=== PATIENT | female | born 1970 | race Caucasian/White ===

== ENCOUNTER → 2019-02-28 09:11 | Outpatient (CLI) | payer BC, SELFPAY ==
--- NOTE | 2019-02-28 09:15 | CA_ITS ---
APPROVED REPORT EXAM: Comprehensive 2D, Doppler, and color-flow Echocardiogram Information Technology Director: Marlin Saldaña RVT Ht: 5 ft 3 in Wt: 235lbs BSA: 2.07 BP: 167/73 mmHg Indications: Edema, HLD 2D Dimensions LVOT 2.30 cm (M/F) 1.5-2.5 M-Mode Dimensions RVDd 2.60 cm (0.9-2.6) LA Diam 3.50 cm (1.9-4.0) LVDd 5.30 cm (3.5-5.7) Ao Diam 2.80 cm (2.0-3.7) LVDs 3.20 cm (3.5-5.7) AV Cusp 1.70 cm (1.5-2.6) IVSd 1.00 cm (0.6-1.1) PWd 0.70 cm (0.6-1.1) EF (Teich) 69.60% FS 39.60% EDV (Teich) 135.00 mL ESV (Teich) 41.00 mL LV Diastology E/A Ratio 0.9 MED E' 7.02 (< 7 cm/sec) E'/MED E' Ratio 10.70 (>14) LAT E' 9.65 (<10 cm/sec) E/LAT E' Ratio 7.80 (>14) Aortic Valve AoV Peak Max. 93.80 (50-130 cm/s) AO Peak GR. 4.00 mmHg Mitral Valve MV E Max Max. 75.00 (40-130 cm/s) MV A Velocity 80.50 (40-130 cm/s) E/A Ratio 0.90 Pulmonary Valve PA Accel Time 137.00 (>120 msec) Left Ventricle Left atrium is normal size, left ventricle is normal size, there is no concentric left ventricular hypertrophy, visually estimated ejection fraction 55% with no regional wall motion abnormality. Diastolic parameters are within normal range. Right Ventricle Right atrium and right ventricular normal size and contractility. Aortic Valve Aortic valve is thickened and calcified leaflet continue to display good mobility. There is no aortic stenosis aortic insufficiency. Mitral Valve Mitral valve is grossly normal, there is mild mitral regurgitation. Tricuspid Valve Tricuspid valve is grossly normal, there is mild tricuspid regurgitation. Pulmonic Valve Pulmonic valve is poorly visualized. Great Vessels Aortic root is normal size. Pericardium No significant pericardial effusion noted. Conclusion 1. Normal left ventricular size, preserved left ventricular systolic function, visually estimated ejection fraction of 55% with no regional wall motion abnormality, diastolic parameters are within normal range. 2. Thickened and calcified aortic valve consistent with aortic sclerosis, there is no aortic stenosis aortic insufficiency. 3. Mild mitral and tricuspid regurgitation 4. No significant pericardial effusion noted. Electronically signed by : Gene Blanca, 02/28/2019 21:19:03
--- NOTE | 2019-02-28 09:17 | US_ITS ---
APPROVED REPORT Exam Type: Lower Extremity Segmental Pressures Facilities Director: Marlin Saldaña RVT Indications Rest Pain: Right Edema Current Smoker Risk Factors Hyperlipidemia Obesity Current Smoker Pressures/Indices Right Indices Left Indices Brachial 143.00 mmHg Brachial 134.00 mmHg Low Thigh 144.00 mmHg 1.01 Low Thigh 145.00 mmHg 1.01 Calf 147.00 mmHg 1.03 Calf 151.00 mmHg 1.06 Ankle(PT) 152.00 mmHg 1.06 Ankle(PT) 153.00 mmHg 1.07 Ankle(DP) 116.00 mmHg 0.81 Ankle(DP) 150.00 mmHg 1.05 Digit 98.00 mmHg 0.69 Digit 104.00 mmHg 0.73 Findings RT [facility]:1.06 LT [facility];1.07 RT TBI:0.69 LT TBI:0.73 NORMAL PULSES BILATERAL NORMAL WAVEFORMS BILATERAL Conclusion No evidence significant arterial disease throughout the right and left lower extremities as evidenced by normal resting PVR waveforms and normal resting indices. Electronically signed by : Noé Zaidi MD 03/01/2019 11:21:42
== END ==
PROVIDERS: PCP Emergency Medicine; Visit Provider Emergency Medicine
DX: R60.9 Edema, unspecified (principal); I73.9 Peripheral vascular disease, unspecified
CPT/HCPCS: 93306; 93923

== ENCOUNTER 2019-03-18 08:00 | Outpatient (RCR) | payer BC, SELFPAY ==
--- NOTE | 2019-03-01 13:56 | HMH.PTOPEV ---
PT Outpatient Evaluation Rehab PT Outpatient Evaluation Start: 03/01/19 13:11 Freq: Status: Active Protocol: Document 03/01/19 13:11 KRISTIAN (Rec: 03/01/19 13:56 KRISTIAN [id number]) Electronically Signed By Mehul Batista, PT 03/01/19 13:11 Outpatient Therapy Subjective History Subjective History Pt reports injury to R heel on Jan 16 and , when she ' banged her heel into a bucket, and then slipped on a toy'. Pt reports constant R heel ( posterior/achilles insertion) since injury, 'feels like it's brusied'. Pt reports pain stays localized, and improves w/decreased activity, open back footwear, and ice. Chief Complaint Pain,Stiff Symptom Type Ache,Sharp,Dull Symptoms Relieved By Rest/Positioning,Ice Symptoms Aggravated By Standing,Walking Prior Functional Limitations Housework Current Functional Limitations Housework,Standing,Walking Symptom Description Constant but Variable Level of pain today (0-10) 4 Pain scale - at its best (0-10) 2 Pain scale - at its worst (0-10) 6 Ankle/Foot Eval Gait Observation General Gait Pattern Observation Antalgic Gait Assistive Device Ambulation Assistive Device None Palpation Tenderness right Ankle/Foot Palpation Findings Tenderness Ankle/Foot Palpation Overall Comment 3/4 ACHILLES INSERTION AND TENDON ROM Ankle/Foot Dorsiflexion w/Knee Extended 0 Active Range Motion (degrees) Ankle/Foot Plantar Flexion Active Range 0-50 of Motion (degrees) Ankle/Foot Eversion Active Range of 0-25 Motion (degrees) Ankle/Foot Inversion Active Range of 0-35 Motion (degrees) Ankle/Foot ROM Limitations Pain MMT Ankle Dorsiflexion Strength Grade 4 Good Ankle Plantarflexion Strength Grade 4- Good- Foot Eversion Strength Grade 4- Good- Foot Inversion Strength Grade 4 Good Outpatient Therapy Assessment Impairments Problems/Impairmments Palpation Tenderness,Impaired Range of Motion,Impaired Strength,Impaired Gait Pattern ,Impaired Walking,Impaired Standing,Impaired Household Care,Impaired Work Activities, Increased Edema,Subjective C/O Pain,Impaired Self Care/Self Management Prognosis Rehab Potential Good Clinical Impression Consistent w
== END 2019-03-18 08:05 | disposition home or self-care (01) ==
LOC: PT 08:00
PROVIDERS: Visit Provider Emergency Medicine
DX: M76.61 Achilles tendinitis, right leg (principal)
CPT/HCPCS: 97010; 97014; 97033; 97035; 97110; 97140; 97163; G0283

== ENCOUNTER → 2019-03-18 15:19 | Outpatient (CLI) | payer BC, SELFPAY ==
--- NOTE | 2019-03-18 15:25 | XR_ITS ---
PROCEDURE: XR ANKLE WT BEARING RT MIN 3V CLINICAL INDICATION: ankle pain Posterior ankle pain COMPARISON: No exams were available for comparison FINDINGS: There are mild hypertrophic changes of the tips of the medial and lateral malleolus. No obvious fracture or dislocation. Small calcaneal spurs present. There is some mild ossification at the Achilles insertion on the calcaneus. This could be posttraumatic or due to early enthesophyte formation. IMPRESSION: No acute finding. Minor degenerative changes with mild ossification at the Achilles insertion on the calcaneus Dictated by: Noé Zaidi MD 03/18/2019 16:15 Electronically signed by Noé Zaidi MD in [facility] 03/18/2019 16:15
== END ==
PROVIDERS: PCP Family Medicine; Visit Provider Podiatrist
DX: M25.571 Pain in right ankle and joints of right foot (principal)
CPT/HCPCS: 73610

== ENCOUNTER → 2019-04-20 09:00 | Outpatient (CLI) | payer BC, SELFPAY ==
--- NOTE | 2019-04-20 09:02 | MM_ITS ---
PROCEDURE: MM DIG SCREENING MAMM BI W/CAD CLINICAL INDICATION: SCREENING There is a history of breast cancer patient's maternal aunt. COMPARISON: DMSB DIG MAMM-SCREEN ALON from 02/05/2016 TECHNIQUE: Standard CC and MLO images were obtained. R2 CAD reviewed. FINDINGS: Scattered fibroglandular densities are seen both breast on a background of fatty breast parenchyma. The findings of bilateral and symmetrical. There are couple of benign-appearing microcalcifications in each breast. There is no suspicious lesion and no suspicious microcalcifications. IMPRESSION: Fibrofatty parenchyma with no suspicious lesions seen BI-RAD Category: 2 Benign Finding(s) FOLLOW-UP: 1YR 1 Year Follow-up (A letter has been sent to the patient regarding results of the study.) Dictated by: Dr. Sebastian Kirkpatrick MD 04/22/2019 10:[address] Sebastian Kirkpatrick MD in [facility] 04/22/2019 10:35
== END ==
PROVIDERS: PCP Family Medicine; Visit Provider Nurse Practitioner Family
DX: Z12.31 Encounter for screening mammogram for malignant neoplasm of breast (principal)
CPT/HCPCS: 77067

== ENCOUNTER 2020-09-24 15:09 | Emergency (ER) | payer BC, SELFPAY ==
[2020-09-24] VITALS (9 sets, daily range): BP systolic 122–181; BP diastolic 60–108; PULSE 65–89; RESP 14–16; TEMP 36.7–37; O2SAT 89–98; BMI 43.7
--- NOTE | 2020-09-24 15:26 | CT_ITS ---
PROCEDURE INFORMATION: Exam: CT Angiography Neck With Contrast Exam date and time: 09/24/2020 3:26 PM Age: 49 years old Clinical indication: Patient HX: Severe headache x 3 days TECHNIQUE: Imaging protocol: Computed tomography angiography of the neck with contrast. 3D rendering (Not supervised by radiologist): MIP and/or 3D reconstructed images were created by the technologist. Radiation optimization: All CT scans at this facility use at least one of these dose optimization techniques: automated exposure control; mA and/or kV adjustment per patient size (includes targeted exams where dose is matched to clinical indication); or iterative reconstruction. Contrast material: ISOVUE; Contrast volume: 100 ml; Contrast route: INTRAVENOUS (IV); COMPARISON: No relevant prior studies available. FINDINGS: Right common carotid artery: No stenosis. No dissection or occlusion. Right internal carotid artery: No stenosis of the extracranial segment. No dissection or occlusion. Right external carotid artery: No occlusion or stenosis of the origin. Right vertebral artery: No stenosis. No dissection or occlusion. Left common carotid artery: No stenosis. No dissection or occlusion. Left internal carotid artery: No stenosis of the extracranial segment. No dissection or occlusion. Left external carotid artery: No occlusion or stenosis of the origin. Left vertebral artery: No stenosis. No dissection or occlusion. Bones/joints: Moderate degenerative changes of the cervical spine are present. Soft tissues: Normal. No significant soft tissue swelling. IMPRESSION: No acute abnormality. REFERENCES: NASCET CRITERIA. The degree of internal carotid artery stenosis is based on NASCET criteria. Normal is no stenosis. Mild is less than 50% stenosis. Moderate is 50-69% stenosis. Severe is 70% to 99% stenosis. Total occlusion is no detectable patent lumen.
--- NOTE | 2020-09-24 15:26 | CT_ITS ---
PROCEDURE INFORMATION: Exam: CT Angiography Head With Contrast, Arteriography Exam date and time: 09/24/2020 3:26 PM Age: 49 years old Clinical indication: Patient HX: Severe headache x 3 days TECHNIQUE: Imaging protocol: Computed tomography angiography of the head with contrast. Exam focused on the arteries. 3D rendering (Not supervised by radiologist): MIP and/or 3D reconstructed images were created by the technologist. Radiation optimization: All CT scans at this facility use at least one of these dose optimization techniques: automated exposure control; mA and/or kV adjustment per patient size (includes targeted exams where dose is matched to clinical indication); or iterative reconstruction. Contrast material: ISOVUE; Contrast volume: 100 ml; Contrast route: INTRAVENOUS (IV); COMPARISON: CT HEAD/BRAIN WO CON 09/24/2020 4:42 PM FINDINGS: ANTERIOR CIRCULATION: Right internal carotid artery: Unremarkable. Intracranial segment is patent with no significant stenosis. No aneurysm. Right middle cerebral artery: Unremarkable. No occlusion or significant stenosis. No aneurysm. Right anterior cerebral artery: Unremarkable. No occlusion or significant stenosis. No aneurysm. Left internal carotid artery: Unremarkable. Intracranial segment is patent with no significant stenosis. No aneurysm. Left middle cerebral artery: Unremarkable. No occlusion or significant stenosis. No aneurysm. Left anterior cerebral artery: Unremarkable. No occlusion or significant stenosis. No aneurysm. POSTERIOR CIRCULATION: Right vertebral artery: Unremarkable. No occlusion or significant stenosis. No aneurysm. Left vertebral artery: Unremarkable. No occlusion or significant stenosis. No aneurysm. Basilar artery: Unremarkable. No occlusion or significant stenosis. No aneurysm. Right posterior cerebral artery: Unremarkable. No occlusion or significant stenosis. No aneurysm. Left posterior cerebral artery: Unremarkable. No occlusion or significant stenosis. No aneurysm. Veins: The venous sinuses are patent. Brain: No definite mass, mass effect, or midline shift. Cerebral ventricles: No ventriculomegaly. Bones/joints: Unremarkable. No acute fracture. Soft tissues: Unremarkable. IMPRESSION: No acute abnormality. No large vessel occlusion
--- NOTE | 2020-09-24 15:42 | HMH.EDHA ---
ED Disposition Clinical Impression: Migraine Qualifiers: Migraine type: without aura Status migrainosus presence: without status migrainosus Intractability: not intractable Qualified Code(s): G43.009 - Migraine without aura, not intractable, without status migrainosus Disposition: Home, Self-Care Condition on Discharge: Good Instructions: Migraine -- Adult Prescriptions: Ibuprofen [Ibuprofen 800mg Tablet] 800 mg PO TIDP PRN #20 tab PRN Reason: Moderate Pain Transmission Status: Pending to [facility] Ondansetron [Zofran 4mg ODT] 4 mg PO BIDP PRN #10 tab PRN Reason: Nausea Transmission Status: Pending to [facility] Referrals: Jenna Blackburn MD [Primary Care Provider] - - Critical Care Critical Care Time: No Attestation: On 09/24/20, the high probability of a clinically significant, sudden or life threatening deterioration of the following system(s) required my full and direct attention, intervention and personal management. The time I documented below is in addition to time spent performing reported procedures but includes the following listed in this critical care notation. Medical Decision Making - Medical Records Medical records reviewed: Yes: I reviewed the patient's medical records. - Hugh Inquiry Pt receiving controlled substance: Yes Hugh was queried for this patient: No Reason not queried -: Emergent pt cond-no time Risks and benefits of using a controlled substance: were discussed with pt by me Vital Signs: 09/24/20 15:21 09/24/20 15:24 09/24/20 15:32 Temperature 98.1 F Temperature Source Oral Pulse Rate 66 89 Pulse Rate [Right] 87 Respiratory Rate 14 Blood Pressure 181/108 H 147/71 H Blood Pressure [Right Arm] 154/97 H Blood Pressure Mean 121 124 Blood Pressure Mean [Right Arm] 116 Blood Pressure Source [Right Arm] Automatic Cuff Blood Pressure Position [Right Arm] Sitting 02 Sat by Pulse Oximetry 93 L 93 L 94 L Oxygen Delivery Method Room Air - Lab Data Lab Results 09/24/20 15:33: WBC 8.9, RBC 5.13, Hgb 16.5 H, Hct 49.6 H, MCV 96.6, MCH 32.1 H, MCHC 33.2, RDW 13.6, Plt Count 246, MPV 7.8, Neut % (Auto) 47.2, Lymph % (Auto) 44.1, [place] % (Auto) 6.3, Eos % (Auto) 1.2, Baso % (Auto) 1.3, Neut # (Auto) 4.2, Lymph # (Auto) 3.9, [place] # (Auto) 0.6, Eos # (Auto) 0.1, Baso # (Auto) 0.1 09/24/20 15:33: Sodium 139, Potassium 4.4, Chloride 106, Carbon Dioxide 29, Anion Gap 8.4, BUN 9, Creatinine 0.60, Estimated Creat Clear 93, Estimated GFR 106, Est GFR ( Amer) 128, Glucose 96, Calcium 9.4, Total Bilirubin 0.3, AST 25, ALT 17, Alkaline Phosphatase 50, Total Protein 7.6, Albumin 4.5, Globulin 3.1, Albumin/Globulin Ratio 1.5 Result diagrams: 09/24/20 15:33 09/24/20 15:33 Orders (Tests/Meds): ED MEDICATIONS Discontinued Medications Generic Name Dose Route Start Last Admin Trade Name Arvinq PRN Reason Stop Dose Admin Diphenhydramine HCl 25 mg 09/24/20 15:27 09/24/20 15:46 Diphenhydramine 50mg/Ml Vial IV 09/24/20 15:28 25 mg ONCE ONE Administration Sodium Chloride 1,000 mls @ 999 mls/hr 09/24/20 15:30 09/24/20 15:46 Sod Chlor 0.9% 1000ml Bag IV 09/24/20 16:30 999 mls/hr .Q1H1M ELPIDIO Administration Iopamidol 100 ml 09/24/20 16:57 09/24/20 16:58 Iopamidol-370 (76%);100ml Bottle IV 09/24/20 16:58 100 ml ONCE ONE Administration Ketorolac Tromethamine 30 mg 09/24/20 17:37 09/24/20 18:20 Ketorolac 30mg/Ml Vial IV 09/24/20 17:38 30 mg ONCE ONE Administration Morphine Sulfate 4 mg 09/24/20 15:27 09/24/20 15:46 Morphine 4mg/Ml Syringe IV 09/24/20 15:28 4 mg ONCE ONE Administration Ondansetron HCl 4 mg 09/24/20 15:27 09/24/20 15:46 Ondansetron 4mg/2ml Vial IV 09/24/20 15:28 4 mg ONCE ONE Administration Sodium Chloride 50 ml 09/24/20 16:57 09/24/20 16:58 0.9 % Sodium Chloride 50 Ml Vial IV 09/24/20 16:58 50 ml ONCE ONE Administration Sodium Chloride 10 ml
[2020-09-24 15:46] LABS: Basophils # 0.1 K/mm3 (0-0.2); Basophils % 1.3 % (0.1-2.0); Eosinophils # 0.1 K/mm3 (0.0-0.4); Eosinophils % 1.2 % (0.1-12.0); Hematocrit 49.6 % (37.0-47.0); Hemoglobin 16.5 g/dL (12.2-16.2); Lymphocytes # 3.9 K/mm3 (0.7-4.5); Lymphocytes % 44.1 % (10-50); Mean Corpuscular HGB Conc 33.2 g/dL (31.8-35.4); Mean Corpuscular Hemoglobin 32.1 pg (27.0-31.2); Mean Corpuscular Volume 96.6 fl (81-99); Mean Platelet Volume 7.8 fl (7.4-10.4); Monocytes # 0.6 K/mm3 (0.1-1.0); Monocytes % 6.3 % (1.7-9.3); Neutrophils # 4.2 K/mm3 (1.8-7.8); Neutrophils % 47.2 % (37.0-80.0); Platelet Count 246 K/mm3 (142-424); Red Blood Count 5.13 M/mm3 (4.20-5.40); Red Cell Distribution Width 13.6 % (11.5-17.5); White Blood Count 8.9 K/mm3 (4.8-10.8)
[2020-09-24 15:49] LABS: Chloride 106 mmol/L (98-107)
[2020-09-24 15:50] LABS: Potassium 4.4 mmoL/L (3.5-5.1); Sodium 139 mmol/L (136-145)
[2020-09-24 15:52] LABS: Alanine Aminotransferase 17 U/L (12-78); Aspartate Amino Transferase 25 U/L (14-36); Blood Urea Nitrogen 9 mg/dl (7-17); Creatinine Clearance Estimated 93 mL/min (50-200); Estimated Glomerular Filt Rate 106 ml/min (>60); GFR (African American) 128 ML/MIN (>60)
[2020-09-24 15:53] LABS: Albumin Level 4.5 g/dl (3.5-5.0); Albumin/Globulin Ratio 1.5 (1.1-1.8); Alkaline Phosphatase 50 U/L (38-126); Anion Gap 8.4 mEq/L (5-15); Bilirubin,Total 0.3 mg/dl (0.2-1.3); Calcium 9.4 mg/dl (8.4-10.2); Carbon Dioxide 29 mmol/L (22.0-30.0); Globulin 3.1 g/dL (1.3-3.2); Glucose 96 mg/dl (74-100); Total Protein,Serum 7.6 g/dl (6.3-8.2)
--- NOTE | 2020-09-24 16:15 | CT_ITS ---
PROCEDURE INFORMATION: Exam: CT Head Without Contrast Exam date and time: 09/24/2020 4:15 PM Age: 49 years old Clinical indication: Patient HX: Severe headache; Additional info: Migraine TECHNIQUE: Imaging protocol: Computed tomography of the head without contrast. Radiation optimization: All CT scans at this facility use at least one of these dose optimization techniques: automated exposure control; mA and/or kV adjustment per patient size (includes targeted exams where dose is matched to clinical indication); or iterative reconstruction. COMPARISON: No relevant prior studies available. FINDINGS: Brain: No acute intracranial hemorrhage, cerebral edema, or midline shift. Cerebral ventricles: No hydrocephalus. Bones/joints: No acute fracture. Paranasal sinuses: Mild left maxillary sinusitis is present. Mastoid air cells: Visualized mastoid air cells are well aerated. Orbital cavity: Unremarkable as visualized. Soft tissues: Unremarkable. IMPRESSION: 1. No acute intracranial abnormality. 2. Mild left maxillary sinusitis
--- NOTE | 2020-09-24 16:58 | PC.NURSE ---
Pt back from CT
== END 2020-09-24 19:12 | disposition home or self-care (01) ==
PROVIDERS: Emergency Provider Emergency Medicine; PCP Family Medicine
DX: G43.009 Migraine without aura, not intractable, without status migrainosus (principal); M54.2 Cervicalgia; F17.210 Nicotine dependence, cigarettes, uncomplicated
CPT/HCPCS: 70450; 70496; 70498; 80053; 85025; 96374; 96375; 99282; J2405; Q9967

== ENCOUNTER → 2020-11-15 10:44 | Outpatient (CLI) | payer BC, SELFPAY ==
--- NOTE | 2020-11-15 10:50 | XR_ITS ---
PROCEDURE: XR CHEST 2V CLINICAL HISTORY: COUGH COMPARISON: No exams were available for comparison FINDINGS: The cardiomediastinal silhouette and pulmonary vascularity are within normal limits. The lungs are clear without infiltrates, suspicious nodules, or pleural effusions. No acute bony abnormalities. IMPRESSION: No acute findings. Dictated by: Noé Zaidi MD 11/15/2020 11:47 Noé Zaidi MD in [facility] 11/15/2020 11:47
== END ==
PROVIDERS: PCP Family Medicine; Visit Provider Nurse Practitioner Family
DX: R05 Cough (principal)
CPT/HCPCS: 71046

== ENCOUNTER → 2020-11-22 15:16 | Outpatient (CLI) | payer BC, SELFPAY ==
--- NOTE | 2020-11-22 15:19 | MM_ITS ---
PROCEDURE INFORMATION: Exam: MG Screening 3D Mammography Exam date and time: 11/22/2020 3:19 PM Age: 50 years old Clinical indication: Encounter for screening mammogram for malignant neoplasm of breast TECHNIQUE: Imaging protocol: Screening tomosynthesis and 2D mammography including computer-aided detection (CAD) when performed. COMPARISON: 1. MG MM DIG SCREENING MAMM BI W/CAD 04/20/2019 9:27 AM 2. MG DMSB DIG MAMM-SCREEN ALON 02/05/2016 8:28 AM FINDINGS: MAMMOGRAPHY: Breast composition: The breast tissue is composed of scattered areas of fibroglandular density. Mass: None. Architectural distortion: None. Calcifications: No suspicious calcifications. Asymmetric density: None. Skin thickening: None. Axillary adenopathy: None. IMPRESSION: No mammographic evidence of malignancy. Annual screening is recommended unless otherwise clinically indicated. ASSESSMENT: BI-RADS Category 1: Negative
--- NOTE | 2020-11-22 15:19 | US_ITS ---
PROCEDURE: US TRANSVAGINAL CLINICAL INDICATION: MENORRHAGIA COMPARISON: No exams were available for comparison FINDINGS: UTERUS: 8cm x 5cmx 5cm with a combined endometrial thickness of 14 mm LEFT OVARY: [id number] with a volume of 14.2ml. RIGHT OVARY: [id number] with a volume of 8.4ml. Somewhat rounded area of slight increased echogenicity noted within the endometrium at the fundal area at 16 x 14 mm and may represent endometrial polyp. There 1.9 cm benign-appearing left ovarian cyst. The right ovary has an unremarkable appearance. No cul-de-sac fluid. IMPRESSION: Thickened endometrium with suspected endometrial polyp 1.9 cm simple appearing left ovarian cyst Dictated by: Noé Zaidi MD 11/23/2020 09:20 Noé Zaidi MD in [facility] 11/23/2020 09:20
== END ==
PROVIDERS: PCP Family Medicine; Visit Provider Nurse Practitioner Family
DX: N92.0 Excessive and frequent menstruation with regular cycle (principal); Z12.31 Encounter for screening mammogram for malignant neoplasm of breast
CPT/HCPCS: 76830; 77063; 77067

== ENCOUNTER 2021-05-26 13:44 | Emergency (ER) | payer BC, SELFPAY ==
[2021-05-26 15:30] VITALS: BP 155/90; PULSE 91; RESP 18; TEMP 36.8; O2SAT 94; BMI 42.9
--- NOTE | 2021-05-26 15:52 | HMH.EDUTC ---
[facility] [place] Disposition Clinical Impression: Migraine Qualifiers: Migraine type: without aura Status migrainosus presence: without status migrainosus Intractability: not intractable Qualified Code(s): G43.009 - Migraine without aura, not intractable, without status migrainosus Disposition: Home, Self-Care Condition on Discharge: Good Instructions: DI for Migraine Additional Instructions: follow up with pcp if symptoms worsen return or be seen in ed monitor for fever rest Referrals: Jenna Blackburn MD [Primary Care Provider] - Time of Disposition: 16: Medical Decision Making - Hugh Inquiry Pt receiving controlled substance: No Vital Signs: 05/26/21 15:30 05/26/21 16:02 Temperature 98.3 F 98.3 F Temperature Source Oral Pulse Rate 91 H Pulse Rate [Right Brachial] 91 H Respiratory Rate 18 18 Blood Pressure 155/90 H Blood Pressure [Right Arm] 155/90 H Blood Pressure Mean [Right Arm] 111 Blood Pressure Source [Right Arm] Automatic Cuff Blood Pressure Position [Right Arm] Sitting 02 Sat by Pulse Oximetry 94 L Oxygen Delivery Method Room Air Orders (Tests/Meds): ED MEDICATIONS Discontinued Medications Generic Name Dose Route Start Last Admin Trade Name Freq PRN Reason Stop Dose Admin Dexamethasone Sodium Phosphate 4 mg 05/26/21 15:55 05/26/21 16:00 Dexamethasone 4mg/Ml 1ml Vial IM 05/26/21 15:56 4 mg ONCE ONE Administration Diphenhydramine HCl 12.5 mg 05/26/21 15:55 05/26/21 16:00 Diphenhydramine 50mg/Ml Vial IM 05/26/21 15:56 12.5 mg ONCE ONE Administration [facility] [place] HPI - General Chief complaint: Urgent Treatment Center Stated complaint: h/a Time Seen by Provider: 05/26/21 15:52 Mode of Arrival: Ambulatory Source of Information: Patient Limitations: No Limitations Description of Symptoms (Recalled from Triage Doc. by RN): PATIENT C/O MIGRAINE. REPORTS SHE HAD ADVIL AT 1100 THIS MORNING WITHOUT RELIEF HEENT Symptoms (Recalled from RN notes): Yes Resp Symptoms (Recalled from RN notes): No Skin Symptoms (Recalled from RN notes): No MS Symptoms (Recalled from RN notes): No Functional Status (Recalled from RN notes): WNL - History of Present Illness Provider Complaint: 50 yr old female presents for migraine with pain in neck and shoulders. pt reports hx of migraines and like her normal gar. denies fever or any other symptoms - Related Data Previous Rx's Medication Instructions Recorded Ibuprofen [Ibuprofen 800mg 800 mg PO TIDP PRN #20 tab 09/24/20 Tablet] Ondansetron [Zofran 4mg ODT] 4 mg PO BIDP PRN #10 tab 09/24/20 Allergies Allergy/AdvReac Type Severity Reaction Status Date / Time No Known Allergies Allergy Verified 09/24/20 15:34 - Worker's Comp Is this a Worker's Comp case?: No [facility] History - Hepatitis A Screen Drug use history?: No High risk sexual behaviors?: No History of sexually transmitted infection?: No Currently employed?: No Childcare worker?: No Do you have indoor plumbing?: Yes Do you have electricity?: Yes Attestation statement:: This patient has been screened for Hepatitis A risk factors. I have reviewed the patient's past medical history: Yes Other Surgeries: Yes: No Previous Surgery, Tubal Ligation Amputation: No - Social History Smoking Status: Current every day smoker Alcohol Intake: never Substance Use Type: denies use Occupational Status: employed Housing: house Household Members: family Family Hx:: No significant family history ROS Obtained: Yes Systems reviewed as appropriate & no additional complaints - Constitutional Constitutional: Reports system reviewed and no additional complaints, except as docu, Denies body ache, Denies chills, Denies fatigue, Denies fever(s), Denies poor appetite, Denies lethargy, Denies malaise - Eyes Eyes: Reports system reviewed and no additional complaints, except as docu, Denies blurry vision - ENT Ears, Nose, Mouth, and Throat: Reports system reviewed and
[2021-05-26 16:02] VITALS: BP 155/90; PULSE 91; RESP 18; TEMP 36.8; O2SAT 94
== END 2021-05-26 16:32 | disposition home or self-care (01) ==
PROVIDERS: Emergency Provider Nurse Practitioner Family; PCP Family Medicine
DX: G43.009 Migraine without aura, not intractable, without status migrainosus (principal); F17.210 Nicotine dependence, cigarettes, uncomplicated
CPT/HCPCS: 96372; 99202; G0463

== ENCOUNTER → 2021-05-29 13:32 | Outpatient (CLI) | payer BC, SELFPAY ==
--- NOTE | 2021-05-29 13:34 | MR_ITS ---
FINAL REPORT CLINICAL HISTORY: NEW DAILY PERSISTENT HEADACHE FINDINGS: Multiplanar MR imaging of the brain was performed without and with contrast. There is no evidence of intracranial hemorrhage or mass. No abnormal extra-axial fluid collection is seen. The ventricular size is within normal limits. There is no evidence of shift of the midline structures. The posterior fossa and brainstem have an unremarkable appearance. No area of abnormal restricted diffusion is identified. No abnormal contrast enhancement is seen. Normal major vessel vascular flow voids are noted. There is moderate mucosal thickening in the left maxillary sinus. IMPRESSION: No acute intracranial abnormality identified. Reviewed, Interpreted and Dictated by Wilfredo Khan III, MD Transcribed by Getachew Cabello Authenticated by Wilfredo Khan III, MD on 05/29/2021 03:44:27 PM [facility]
== END ==
PROVIDERS: PCP Family Medicine; Visit Provider Family Medicine
DX: G44.52 New daily persistent headache (NDPH) (principal)
CPT/HCPCS: 70553; A9576

== ENCOUNTER → 2021-06-17 09:37 | Outpatient (CLI) | payer BC, SELFPAY ==
[2021-06-18 06:50] LABS: Covid-19 Nasal PCR Sendout Lex NOT DETECTED
== END ==
PROVIDERS: PCP Family Medicine; Visit Provider Nurse Practitioner
DX: Z20.822 Contact with and (suspected) exposure to COVID-19 (principal)
CPT/HCPCS: C9803; U0004; U0005

== ENCOUNTER → 2021-07-13 09:01 | Outpatient (CLI) | payer BC, SELFPAY ==
[2021-07-13 09:41] LABS: Basophils # 0.1 K/mm3 (0-0.2); Basophils % 1.1 % (0.1-2.0); Eosinophils # 0.1 K/mm3 (0.0-0.4); Eosinophils % 1.6 % (0.1-12.0); Hematocrit 49.2 % (37.0-47.0); Hemoglobin 16.5 g/dL (12.2-16.2); Lymphocytes # 3.7 K/mm3 (0.7-4.5); Mean Corpuscular HGB Conc 33.7 g/dL (31.8-35.4); Mean Corpuscular Hemoglobin 32.9 pg (27.0-31.2); Mean Corpuscular Volume 97.8 fl (81-99); Mean Platelet Volume 8.5 fl (7.4-10.4); Monocytes # 0.6 K/mm3 (0.1-1.0); Monocytes % 6.8 % (1.7-9.3); Neutrophils # 4.3 K/mm3 (1.8-7.8); Neutrophils % 48.4 % (37.0-80.0); Platelet Count 245 K/mm3 (142-424); Red Blood Count 5.03 M/mm3 (4.20-5.40); Red Cell Distribution Width 13.7 % (11.5-17.5); White Blood Count 8.9 K/mm3 (4.8-10.8)
[2021-07-13 10:46] LABS: Chloride 101 mmol/L (98-107); Sodium 136 mmol/L (136-145)
[2021-07-13 10:49] LABS: Blood Urea Nitrogen 12 mg/dl (7-17); Estimated Glomerular Filt Rate 105 ml/min (>60); GFR (African American) 128 ML/MIN (>60)
[2021-07-13 10:50] LABS: Calcium 8.6 mg/dl (8.4-10.2); Carbon Dioxide 31 mmol/L (22.0-30.0); Glucose 84 mg/dl (74-100)
[2021-07-13 11:46] LABS: HCG Qualitative, Serum Negative (Negative)
== END ==
PROVIDERS: PCP Family Medicine; Referring Provider Nurse Practitioner Obstetrics & Gynecology; Visit Provider Nurse Practitioner Obstetrics & Gynecology
DX: Z01.818 Encounter for other preprocedural examination (principal); Z11.52 Encounter for screening for COVID-19; N84.0 Polyp of corpus uteri; N95.0 Postmenopausal bleeding; R10.2 Pelvic and perineal pain
CPT/HCPCS: 36415; 80048; 84703; 85025; C9803; U0003; U0005

== ENCOUNTER 2021-07-15 05:55 | Day surgery (SDC) | payer BC, SELFPAY ==
[2021-07-11 12:21] VITALS: BMI 46.0
[2021-07-15] VITALS (11 sets, daily range): BP systolic 108–149; BP diastolic 49–89; PULSE 74–104; RESP 18; TEMP 36.2–36.6; O2SAT 92–97
--- NOTE | 2021-07-15 06:51 | HMH.ANESCL ---
[facility] Anesthesia Checklist - Structural Data Admitted From: Home Planned Operative Procedure/s: d/c hyst Consent for Planned Operative Procedure(s) Verified: Yes - Additional verifications Anesthesia Reactions: No Hx Blood Transfusions: No Blood Transfusion Reaction: No - Airway Assessment C-Spine Mobility Assessed: Yes TMJ Mobility Assessed: Yes Dentition: Dentures-good fit - Neurological Assessment Level of Consciousness: Awake, Alert, Appropriate - Anesthesia Plan Anesthesia Risk discussed: Yes Anesthesia Plan: Verified ASA Class: III Anesthesia Type: General [facility] History I have reviewed the patient's past medical history: Yes Medical History: Reports:: Hypertension, Migraine Denies:: Cancer, Diabetes Mellitus Type 1, Diabetes Mellitus Type 2, Internal Pacemaker, MRSA, Seizures *Have you ever received a pneumonia vaccine?: Yes *Have you received a flu vaccine this season?: Yes Other Medical History: Denies: Blood Transfusion Reaction Anesthesia experience/problems:: none Other Surgeries: Yes: No Previous Surgery, Tubal Ligation. 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
--- NOTE | 2021-07-15 08:02 | HMH.OPNOTE ---
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 She had an ultrasound that showed a possible endometrial polyp and some endometrial thickening. As result of that she was offered hysteroscopy, D&C and MyoSure removal of her polyp. Operative findings:: She had an anteverted bulky uterus. The endometrium appeared lush. There was a small polyp. Operative note:: She was take the operating room where conscious sedation was found to be adequate. She is prepped with normal sterile fashion lithotomy position. A weighted speculum placed in vagina and the anterior lip of the cervix was grasped with a tenaculum. Augilera dilators used to dilate the cervix up to approximately 7 mm. We then used a hysteroscope and entered the uterine cavity. Saline was used as a distending media. Using the MyoSure device I then resected the entire endometrial cavity. This was sent to pathology. At the end of the procedure I injected approximately 30 cc of 0.5% ropivacaine at the 3:00, 5:00, 7:00, and 9:00 positions. She tolerated procedure well and was taken to recovery next condition. All sponge and instrument counts were correct. The estimated blood loss was approximately 50 cc. We used 1800 cc of saline and recovered 1500 cc. The deficit was 300 cc. Condition: stable Disposition: PACU Complications:: None
--- NOTE | 2021-07-15 08:15 | HMH.ANESI ---
[facility] Anesthesia Record Part I Intake, IV Amount: 500 Estimated blood loss (mL): 50 Urine output (mL): 0 Blood Pressure: 130/86 SaO2: 95 Pulse Rate: 86 Respiratory Rate: 18 Temperature: 97.9 F Patient is:: Drowsy Stable to PACU at:: 08:08
--- NOTE | 2021-07-15 16:35 | P.PN_ITS ---
[facility] Anesthesia Record Part II Discharge Time: 08:38 Destination: Surgical Day Care (OP Surgery) PACU nurse assessment reviewed?: Yes Patient Condition:: Good Anesthesia Complications:: None Swallowing reflex intact?: Yes Cyanosis?: No Blood Pressure: 121/77 Pulse Rate: 81 Temperature: 97.3 F Mental Status: Alert & Oriented Pain level:: 4 Nausea and/or vomitting:: None Intake, IV Amount: 0
== END 2021-07-15 09:10 | disposition home or self-care (01) ==
LOC: OR 05:57
PROVIDERS: PCP Family Medicine; Visit Provider Nurse Practitioner Obstetrics & Gynecology
PROC: 0UB98ZZ Excision of Uterus, Via Natural or Artificial Opening Endoscopic (ICD-10-PCS; CPT 58558; principal; 2021-07-15 07:30)
DX: N95.0 Postmenopausal bleeding (principal); N84.0 Polyp of corpus uteri; I10 Essential (primary) hypertension; G43.909 Migraine, unspecified, not intractable, without status migrainosus; Z80.9 Family history of malignant neoplasm, unspecified; Z83.3 Family history of diabetes mellitus; Z82.3 Family history of stroke
CPT/HCPCS: 58563; 58558; 96374; J2405

== ENCOUNTER → 2021-08-21 10:05 | Outpatient (CLI) | payer BC, SELFPAY | PROVIDERS: Visit Provider Surgery | DX: Z11.52 Encounter for screening for COVID-19 (principal) | CPT/HCPCS: C9803; U0003; U0005 ==

== ENCOUNTER 2021-08-23 07:29 | Day surgery (SDC) | payer BC, SELFPAY ==
[2021-08-21 13:06] VITALS: BMI 45.1
[2021-08-23 07:38] VITALS: BP 164/100; PULSE 96; RESP 18; TEMP 36.5; O2SAT 95
--- NOTE | 2021-08-23 08:10 | P.PN_ITS ---
[facility] Anesthesia Checklist - Patient Identification Patient Identification: Arm Band - Structural Data Admitted From: Home Planned Operative Procedure/s: colonoscopy Consent for Planned Operative Procedure(s) Verified: Yes Verified Documents: Surgical Consent, History and Physical - NPO Status Verified Time NPO: 00:00 - Additional verifications Anesthesia Reactions: No Hx Blood Transfusions: No Blood Transfusion Reaction: No - Airway Assessment C-Spine Mobility Assessed: Yes (mp2) TMJ Mobility Assessed: Yes Dentition: Good Dentition - Neurological Assessment Level of Consciousness: Awake, Alert - Anesthesia Plan Anesthesia Risk discussed: Yes Anesthesia Plan: Verified ASA Class: III Anesthesia Type: MAC [facility] History I have reviewed the patient's past medical history: Yes Medical History: Reports:: Hyperlipidemia, Hypertension, Migraine Denies:: Cancer, Diabetes Mellitus Type 1, Diabetes Mellitus Type 2, Internal Pacemaker, MRSA, Seizures *Have you ever received a pneumonia vaccine?: Yes *Have you received a flu vaccine this season?: Yes Other Medical History: Denies: Blood Transfusion Reaction Anesthesia experience/problems:: nac Other Surgeries: Yes: Tubal Ligation. 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
[2021-08-23 08:15] VITALS: O2SAT 97
--- NOTE | 2021-08-23 09:17 | HMH.SCOPE ---
- Procedure: Date: 08/23/21 Patient Date of :: 1970 Procedure Performed:: Total colonoscopy with numerous polypectomy using biopsy and snare Indications:: 50-year-old female, smoker with hypertension referred by Dr. Blackburn for initial screening colonoscopy. Performing Provider:: Wilfredo Miner MD Referring Provider:: Isidro Blackburn MD Sedation:: MAC sedation Procedure:: Patient was taken to endoscopy procedure room. She was positioned in lateral decubitus position. Adequate intravenous sedation was achieved with anesthesia titration propofol. Variable stiffness Olympus colonoscope was inserted via the anus. Is advanced to the cecum. Colonic preparation was good. Ileocecal valve and appendiceal orifice were clearly identified. Colonoscope was slowly withdrawn through the colon with careful surveillance. Multiple small polyps were encountered and removed by a variety of technique. Please see findings below. Post polypectomy in the sigmoid colon did reveal evidence of vessel and Hemoclip was deployed. Within the rectum retroflexion was performed. There was a small polyp in the distal rectum removed with cold snare. She had some prolapsing internal hemorrhoids. Patient also had some moderate external hemorrhoids. Colonoscope was withdrawn. Findings:: Descending colon polyp x2 removed with biopsy forceps Distal descending colon polyp x3 removed with snare Proximal sigmoid polyp x4 removed with cold snare Mid sigmoid polyp x5 removed with cold snare Distal sigmoid polyp x5 removed with combination of cold snare and biopsy forceps Rectosigmoid polyp x5 removed with biopsy forceps Distal rectal polyp removed with cold snare She had a total of 26 small mostly hyperplastic appearing polyps. Internal and external hemorrhoids. Recommendations:: Follow-up colonoscopy based on pathology Complications:: None immediately apparent Estimated blood obtained (mL): 4 Comment:: Small hyperplastic appearing polyps x26 Internal and external hemorrhoids
[2021-08-23 09:20] VITALS: BP 106/55; PULSE 87; RESP 18; TEMP 36.4; O2SAT 95
[2021-08-23 09:30] VITALS: BP 118/80; PULSE 91; RESP 18; O2SAT 97
[2021-08-23 09:53] VITALS: BP 158/87; PULSE 84; RESP 18; TEMP 36.4; O2SAT 98
== END 2021-08-23 09:53 | disposition home or self-care (01) ==
LOC: OUTP 07:30
PROVIDERS: PCP Family Medicine; Visit Provider Surgery
PROC: 0DJD8ZZ Inspection of Lower Intestinal Tract, Via Natural or Artificial Opening Endoscopic (ICD-10-PCS; CPT 45385; principal; 2021-08-23 08:30)
DX: Z12.11 Encounter for screening for malignant neoplasm of colon (principal); K63.5 Polyp of colon; K64.9 Unspecified hemorrhoids; E78.5 Hyperlipidemia, unspecified; I10 Essential (primary) hypertension; G43.909 Migraine, unspecified, not intractable, without status migrainosus; Z72.0 Tobacco use; Z83.3 Family history of diabetes mellitus
CPT/HCPCS: 45385; 45380; J2704

== ENCOUNTER 2022-07-03 15:23 | Outpatient (CLI) | payer BC, SELFPAY ==
[2022-07-03 15:59] VITALS: BMI 44.2
== END 2022-07-03 19:43 | disposition home or self-care (01) ==
LOC: UTC.OUT 11-11 14:49
PROVIDERS: Visit Provider Nurse Practitioner Family
DX: Z11.1 Encounter for screening for respiratory tuberculosis (principal)
CPT/HCPCS: 86580

== ENCOUNTER → 2022-09-15 10:15 | Outpatient (CLI) | payer BC, SELFPAY ==
--- NOTE | 2022-09-15 10:20 | XR_ITS ---
FINAL REPORT CLINICAL HISTORY: PAIN NO INJURY FINDINGS: LEFT SHOULDER 3 views of the left shoulder were obtained. There is no acute fracture or dislocation. Visualized joint spaces are normally aligned. Soft tissues are unremarkable. IMPRESSION: No acute bony abnormality. Reviewed, Interpreted and Dictated by Patrick Thompson MD Transcribed by Rena Chase Authenticated and [facility]
== END ==
PROVIDERS: PCP Family Medicine; Visit Provider Family Medicine
DX: M25.512 Pain in left shoulder (principal)
CPT/HCPCS: 73030

== ENCOUNTER → 2022-09-26 13:22 | Outpatient (CLI) | payer BC, SELFPAY ==
--- NOTE | 2022-09-26 13:25 | MM_ITS ---
PROCEDURE INFORMATION: Exam: MG Bilateral Screening 3D Mammography Exam date and time: 09/26/2022 1:28 PM Age: 51 years old Clinical indication: Screening mammogram TECHNIQUE: Imaging protocol: Bilateral Screening tomosynthesis and 2D mammography including computer-aided detection (CAD) when performed. COMPARISON: 1. MG MM DIG SCREENING MAMM BI W/CAD 11/22/2020 3:52 PM 2. MG MM DIG SCREENING MAMM BI W/CAD 04/20/2019 9:27 AM 3. MG DMSB DIG MAMM-SCREEN ALON 02/05/2016 8:28 AM FINDINGS: MAMMOGRAPHY: Breast composition: There are scattered areas of fibroglandular density. Mass: None. Architectural distortion: No new or suspicious architectural distortion. Calcifications: No new or suspicious calcifications are present Asymmetric density: No new or suspicious asymmetric density is present Skin thickening: None. Axillary adenopathy: None. IMPRESSION: No mammographic evidence of malignancy. Recommend annual screening mammography unless otherwise clinically indicated. ASSESSMENT: BI-RADS category 1: Negative
== END ==
PROVIDERS: PCP Family Medicine; Visit Provider Family Medicine
DX: Z12.31 Encounter for screening mammogram for malignant neoplasm of breast (principal)
CPT/HCPCS: 77063; 77067

== ENCOUNTER → 2022-10-06 15:42 | Outpatient (CLI) | payer BC, SELFPAY ==
--- NOTE | 2022-10-06 15:45 | MR_ITS ---
FINAL REPORT CLINICAL HISTORY: DEGENERATION OF INV. DISC OF C-SPINE. left sided neck pain. bilateral arm pain, numbness and tingling FINDINGS: Multiplanar MR imaging of the cervical spine was performed without contrast. On the sagittal T2-weighted images, disc degeneration is seen at multiple levels. There is no evidence of fracture. The vertebral alignment is normal. The cervical spinal cord has an unremarkable appearance without evidence of mass, edema or syrinx. The cervicomedullary junction is normal. C2-3: A small central disc protrusion is present which mildly indents the thecal sac. No significant canal stenosis or neural foraminal narrowing is identified. C3-4: A small central disc protrusion indents the thecal sac. There is mild central canal stenosis with an AP diameter of the thecal sac of 8 mm. C4-5: A disc bulge is present with small uncovertebral osteophytes. There is a small central disc protrusion which mildly indents the thecal sac. There is mild left neural foraminal narrowing. C5-6: A disc osteophyte complex is present. There is a left paracentral disc protrusion which indents the thecal sac and causes cord contouring. There is mild central canal stenosis with an AP diameter of the thecal sac of 7 mm. There is moderate bilateral neural foraminal narrowing. C6-7: A disc osteophyte complex is present. There is a broad-based left paracentral disc protrusion which indents the thecal sac. There is mild left neural foraminal narrowing. C7-T1: A small left paracentral disc protrusion mildly indents the thecal sac. There is mild left neural foraminal narrowing. T1-2: Unremarkable. IMPRESSION: Left paracentral C5-6 disc protrusion with mild central canal stenosis and probable left C6 nerve root impingement. Multiple other disc protrusions as described. Authenticated and [facility]
== END ==
PROVIDERS: PCP Family Medicine; Visit Provider Family Medicine
DX: M50.30 Other cervical disc degeneration, unspecified cervical region (principal)
CPT/HCPCS: 72141; 76376

== ENCOUNTER 2022-10-14 15:00 | Outpatient (RCR) | payer BC, SELFPAY | END 2022-10-14 15:05 | disposition home or self-care (01) | LOC: OT 15:00 | PROVIDERS: PCP Family Medicine; Visit Provider Family Medicine | DX: M25.512 Pain in left shoulder (principal) | CPT/HCPCS: 97165 ==

== ENCOUNTER 2023-09-03 16:48 | Outpatient (CLI) | payer BC, SELFPAY ==
--- NOTE | 2023-09-03 | XR_ITS ---
PROCEDURE INFORMATION: Exam: XR Lumbosacral Spine Exam date and time: 09/03/2023 4:57 PM Age: 52 years old Clinical indication: Low back pain; Additional info: Lower back pain x 3 days TECHNIQUE: Imaging protocol: Radiologic exam of the lumbosacral spine. Views: 4 or 5 views. COMPARISON: No relevant prior studies available. FINDINGS: Bones/joints: No loss of vertebral body height. Mild multilevel degenerative disc disease is greatest at L4-L5. No scoliosis or spondylolisthesis. Soft tissues: Unremarkable. Organs: 2.3 cm calcification in the right abdomen could be a gallstone. IUD in the pelvis. IMPRESSION: Mild multilevel degenerative disc disease in the lumbar spine.
== END 2023-09-03 23:59 | disposition home or self-care (01) ==
LOC: RAD 16:50
PROVIDERS: PCP Family Medicine; Visit Provider Physician Assistant
DX: M54.16 Radiculopathy, lumbar region (principal)
CPT/HCPCS: 72110

== ENCOUNTER 2023-09-17 08:13 | Outpatient (CLI) | payer BC, SELFPAY ==
--- NOTE | 2023-09-17 08:22 | US_ITS ---
FINAL REPORT TECHNIQUE: Multiple transverse and longitudinal images CLINICAL HISTORY: ABN XRAY COMPARISON: None FINDINGS: There is a dominant gallstone measuring up to 23 mm in size. There is a adjacent nonshadowing 6 mm focus, that likely represents a small polyp. No biliary ductal dilatation is appreciated. No fluid collections are seen. Limited portions of the right liver are unremarkable. Limited portions of the right kidney are unremarkable. IMPRESSION: Dominant gallstone measuring up to 23 mm. Adjacent nonshadowing echogenic focus measuring 6 mm, that may represent a small polyp. Reviewed, Interpreted and Dictated by Jenna Hernandez MD Transcribed by Tracy Macias Authenticated and [facility]
== END 2023-09-17 23:59 | disposition home or self-care (01) ==
LOC: RAD 08:15
PROVIDERS: PCP Family Medicine; Visit Provider Physician Assistant
DX: R93.89 Abnormal findings on diagnostic imaging of other specified body structures (principal)
CPT/HCPCS: 76705

== ENCOUNTER 2023-09-22 13:45 | Outpatient (RCR) | payer BC, SELFPAY ==
--- NOTE | 2023-09-22 15:22 | HMH.PTOPEV ---
PT Outpatient Evaluation Rehab PT Outpatient Evaluation Start: 09/22/23 13:53 Freq: Status: Active Protocol: Document 09/22/23 13:53 JAY (Rec: 09/22/23 15:17 JAY [email or web address]) E-signed By Nara Cruz, PT Outpatient Therapy Subjective History Subjective History This is an initial evaluation for Gypsy Martin who presents with acute LBP with R-sided radiculopathy. Pt reports these symptoms began 3-4 weeks ago but have improved since. Pt reports history of LBP but this is a new acute pain that begins centrally and goes down to R thigh (not past knee). Pt denying prior injury, numbness, tingling, or worsening weakness. 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 PMH: Hyperlipidemia, Hypertension, and Migraines Meds: Prednisone, meloxicam. Lumbar Xray 09/02: No loss of vertebral body height. Mild multilevel degenerative disc disease is greatest at L4-L5. No scoliosis or spondylolisthesis. New diagnosis of cancer in past 12 No months? Chief Complaint Pain,Stiff Symptom Type Ache,Sharp Symptoms Relieved By Heat,OTC Meds,Prescription Meds Symptoms Aggravated By Standing,Bending/Stooping, Physical Activity,Twisting, Walking,Lifting Prior Functional Limitations None Current Functional Limitations Reaching,Lifting,Dressing, Sleeping,Standing,Squatting, Recreation Activity,Walking Symptom Description Constant but Variable Level of pain today (0-10) 3 Pain scale - at its best (0-10) 1 Pain scale - at its worst (0-10) 6 Lumbopelvic Eval Posture Lumbar Spine Posture Standing Position Increased Lordosis Gait Observation General Gait Pattern Observation Antalgic Gait Palapation tenderness right thoracic spinal tenderness No lumbar spinal tenderness Yes: 3/4 TTP paraspinal tenderness Yes: 2/4 TTP buttock tenderness Yes: 1/4 TTP Lumbar/Sacral Palpation Findings Tenderness,Muscle Guarding Accessory Movement T-spine Vertebrae Accessory Movements Central [place] that Elicit Symptoms L3 right L4 right L5 right Range of Motion Lumbar Spine Active Flexion Range of limited, 50, painful Motion (degrees) Lumbar Spine Active Extension Range of limited, 15, painful Motion (degrees) Left Lumbar Spine Lateral Flexion Active 25 Range of Motion (degrees) Right Lumbar Spine Lateral Flexion 25, painful Active Range of Motion (degrees) Lumbar Spine ROM Limitations Pain Manual Muscle Test Left Knee Extension Strength Grade 5 Normal Knee Flexion Strength Grade 4 Good Hip Flexion Strength Grade 4 Good Hip Abduction Strength Grade 4 Good Hip Adduction Strength Grade 4 Good Right Knee Extension Strength Grade 4 Good Knee Flexion Strength Grade 4- Good- Hip Flexion Strength Grade 3+ Fair+ Hip Abduction Strength Grade 4- Good- Hip Adduction Strength Grade 4- Good- Hip Extension Strength Grade 4 Good Special Tests Hip Saurabh (MARIA ISABEL) Test Negative Right Hip Nicolas Test Positive Right Hip Piriformis Test Positive Right Sciatic Nerve Tension Test Negative Right Hip 90-90 Straight Leg Raise Test Negative Left,Negative Right Crossed Straight Leg Raise Test Negative Left,Negative Right Sacroiliac Joint Compression Test Negative Left,Negative Right Lumbar [place] Distraction Test/Manual Negative Traction Oswestry Index Section 1 Pain Intensity The pain comes and goes and is moderate Section 2 Personal Care (Washing,Dresing) increase the pain and I find it necessary to change my way of doing it Section 3 Lifting Pain prevents me from lifting weights off the floor Section 4 Walking I have some pain when walking but it does not increase with distance Section 5 Sitting Pain prevents me from sitting for more than 1/2 hour Section 6 Standing I cannot stand more than 1 hour without increasing pain Section 7 Sleeping Because of my pain, my normal night's sleep is less than 6 hours sleep Section 8 Social Life Pain has no significant effect on my social life apart from limiting Section 9 Traveling I get extra pain while traveling, but it does not compel me to seek al Section 10 Changing Degreee of Pain My pain fluctuates, but overall is definitely getting better Score and Risk Level Oswestry Sc 20 Oswestry Risk Level Moderate Disability Miscellaneous Dx PT Eval Miscellaneous Goals Short Term Goals In 3 weeks pt will: 1) Be IND with HEP to address strength and ROM deficits 2) Verbalize at worst pain to be 4/10 to decrease pain severity 3) Decrease lumbar paraspinal TTP to 1/4 to decrease symptom irritability. Skilled Nursing Goals In 6 weeks pt will: 1) Be IND with advanced HEP to address strength and ROM deficits 2) Verbalize at worst pain LBP to be 2/10 to decrease pain severity and improve QOL 3) Improve RLE hip strength to 5/5 with all tested MMTs 4) Decrease MARGARITA by 5 points to decrease disability and improve QOL 5) Improve lumbar AROM to WNL in all planes. Outpatient Therapy Assessment Impairments Problems/Impairmments Palpation Tenderness,Impaired Range of Motion,Impaired Strength,Impaired Endurance, Impaired Walking,Impaired Standing,Impaired Lifting, Impaired Shower/Bathing, Impaired Household Care, Impaired Squatting,Impaired Bending,Impaired Recreational Activities,Impaired Work Activities,Subjective C/O Pain Prognosis Rehab Potential Good Clinical Impression Consistent with Diagnosis Yes Outpatient Therapy Plan of Care Treatment Plan May Include Therapeutic Exercise Including Home Yes Exercise Program Manual Therapy Techniques Yes Neuromuscular Re-education Yes Therapeutic Activities to Return to Yes Previous Functional/Work Level Gait Training Yes ADL/Self Care Education Yes Mechanical Traction Yes Dry Needling Yes Thermal Modalities Yes Electrical Stimulation Yes Ultrasound/Phonophoresis Yes Iontophoresis Yes Orthotics/Bracing/Splinting Yes Massage Yes Eval/Re-Eval Yes Aquatic Therapy Yes Frequency Times per week 2x Duration Number of Weeks 5-6 Addendums This patient is a candidate for social No or vocational rehab? Patient/Guardian verbally acknowledges Yes understanding of treatment program and consents to further treatment? Patient/Guardian verbally acknowledges Yes understanding of diagnosis, prognosis and goals for treatment? Eval Complexity PT Charges 83086 - Moderate Complexity Shoulder/Elbow Eval Shoulder Objective Measurements Elbow Objective Measurements PHYSICIAN CERTIFICATION: I certify the specified therapy services for Gypsy Martin are required, authorized, and reviewed every 30 days.
== END 2023-09-22 15:00 | disposition home or self-care (01) ==
LOC: PT 13:45
PROVIDERS: Visit Provider Physician Assistant
DX: M54.16 Radiculopathy, lumbar region (principal)
CPT/HCPCS: 97163

== ENCOUNTER 2024-06-03 10:45 | Outpatient (CLI) | payer BC, SELFPAY ==
--- NOTE | 2024-06-03 10:49 | XR_ITS ---
FINAL REPORT CLINICAL HISTORY: BRONCHITIS..cough COMPARISON: 11/15/2020 FINDINGS: No acute pulmonary density is evident. There is no evidence of effusion or other pleural disease. The mediastinum has a normal appearance. The cardiac silhouette is unremarkable. IMPRESSION: No acute disease. No change from previous. Reviewed, Interpreted and Dictated by Jenna Hernandez MD Transcribed by Amber Dumont Authenticated and [facility]
== END 2024-06-03 23:59 | disposition home or self-care (01) ==
LOC: RAD 10:46
PROVIDERS: PCP Family Medicine; Visit Provider Physician Assistant
DX: J40 Bronchitis, not specified as acute or chronic (principal)
CPT/HCPCS: 71046

== ENCOUNTER 2024-06-09 15:14 | Outpatient (CLI) | payer BC, SELFPAY ==
--- NOTE | 2024-06-09 15:16 | MM_ITS ---
PROCEDURE INFORMATION: Exam: MG Bilateral Screening 3D Mammography Exam date and time: 06/09/2024 3:02 PM Age: 53 years old Clinical indication: Screening examination TECHNIQUE: Imaging protocol: Bilateral Screening tomosynthesis and 2D mammography including computer-aided detection (CAD) when performed. COMPARISON: 1. MG MM DIG SCREENING MAMM BI W/CAD 09/26/2022 1:28 PM 2. MG MM DIG SCREENING MAMM BI W/CAD 11/22/2020 3:52 PM FINDINGS: MAMMOGRAPHY: Breast composition: There are scattered areas of fibroglandular density. Mass: None. Architectural distortion: None. Calcifications: No suspicious calcifications. Asymmetric density: None. Skin thickening: None. Axillary adenopathy: None. IMPRESSION: No mammographic evidence of malignancy. Annual screening is recommended unless otherwise clinically indicated. ASSESSMENT: BI-RADS Category 1: Negative.
== END 2024-06-09 23:59 | disposition home or self-care (01) ==
LOC: RAD 15:14
PROVIDERS: PCP Family Medicine; Visit Provider Physician Assistant
DX: Z12.31 Encounter for screening mammogram for malignant neoplasm of breast (principal)
CPT/HCPCS: 77063; 77067

== ENCOUNTER 2024-12-14 08:38 | Emergency (ER) | payer BC, SELFPAY ==
--- OUTSIDE RECORDS SUMMARY | 2024-03-23 11:30 | XMS_ITS ---
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 Role Phone Julio C Blackburn Primary Care Provider Dorene Alexanderian Unavailable [phone] REASON FOR VISIT flu shot Medications Medication SIG (Take, Route, Frequency, Duration) Notes Start Date End Date Status Albuterol Sulfate HFA 108 (90 Base) MCG/ACT 1-2 puff(s) inhaled every 6 hours, prn 09/05/2022 Not-Taking Medrol 4 MG as directed orally 09/05/2022 Not-Taking Kxxoglqie-Mvejxzmx-U M 30-2-10 MG/5ML 5-10 ml orally 4 times per day, prn 09/05/2022 Not-Taking Amoxicillin 500 MG 1 cap(s) orally 3 times a day; Duration: 10 day(s) 05/31/2021 Not-Taking Amoxicillin-Pot Clavulanate 875 MG 1 P.O. BID *Please review and pick correct strength-formula tion from [employer] options. If intended option is not shown, discontinue and re-order from Quick Search* 09/26/2020 Not-Taking Ozempic (0.25 or 0.5 MG/DOSE) 2 MG/1.5 ML (1 MG DOSE) 0.25MG SUBCUTANEOUSLY ONCE A WEEK *Please review and pick correct strength-formula tion from [employer] options. If intended option is not shown, discontinue and re-order from Quick Search* 11/11/2021 Not-Taking Medrol 4 MG as directed orally daily; Duration: 6 days 10/20/2022 Not-Taking Metoprolol Succinate ER 25 MG TAKE ONE TABLET BY MOUTH EVERY DAY; Duration: 30 Not-Taking Fluticasone Propionate 50 MCG/ACT 1 spray(s) in each nostril once a day; Duration: 30 day(s) 08/20/2020 Not-Taking Meloxicam 15 MG 1 tab(s) orally once a day; Duration: 30 day(s) 09/15/2022 Active Medrol 4 MG as directed orally daily; Duration: 6 days 09/03/2023 Not-Taking Medrol 4 MG as directed orally daily; Duration: 6 days 09/15/2022 Not-Taking Flonase Allergy Relief 50 MCG/ACT 1 spray(s) in each nostril once a day; Duration: 30 day(s) 05/31/2021 Active Nurtec 75 MG 1 tab(s) orally once 05/28/2021 Active Cyclobenzaprine HCl 5 MG 1 tablet Orally three times a day as needed Active Immunizations Vaccine Route Administration Date Status Comme nts Fluzone Quad (6months&older) IM Intramuscular 03/23/2024 Administered Encounters Encounter Location Date Provider Diagnosis [facility] [address] [facility] [address] [place], [place] [id number] 03/23/2024 Alessandro Alexander Encounter for immunization Z23 Assessments Encounter Date Diagnosis (ICD Code) Assessment Notes Treatment Notes Treatment Clinical Notes Section Notes 03/23/2024 Encounter for immunization (ICD-10 - Z23) Plan Of Treatment No Information Progress Notes * Gypsy ORDONEZDOB:1970 (54 yo F)Acc No.[id number]:03/23/2024 Patient: Gypsy GÓMEZ Provider: Edie Alexander M.D. :1970 A ge:53 Y S ex:Female Date:03/23/2024 [address] [id number] Pcp:Julio C Blackburn Subjective: * Chief Complaints: * 1 . Flu shot. * Medical History: * Medications: T aking Nurtec 75 MG Tablet Disintegrating 1 tab(s) orally once , Taking Flonase Allergy Relief 50 MCG/ACT Suspension 1 spray(s) in each nostril once a day , Taking Cyclobenzaprine HCl 5 MG Tablet 1 tablet Orally three times a day as needed , Taking Meloxicam 15 MG Tablet 1 tab(s) orally once a day , Not-Taking Metoprolol Succinate ER 25 MG Tablet Extended Release 24 Hour TAKE ONE TABLET BY MOUTH EVERY DAY , Not-Taking Medrol 4 MG Tablet Therapy Pack as directed orally daily , Not-Taking Ozempic (0.25 or 0.5 MG/DOSE) 2 MG/1.5 ML (1 MG DOSE) SOLUTION 0.25MG SUBCUTANEOUSLY ONCE A WEEK , Notes to Pharmacist: *Please review and pick correct strength-formulation from [employer] options. If intended option is not shown, discontinue and re-order from Quick Search*, Not-Taking Fluticasone Propionate 50 MCG/ACT Suspension 1 spray(s) in each nostril once a day , Not-Taking Amoxicillin-Pot Clavulanate 875 MG 1 P.O. BID , Notes to Pharmacist: *Please review and pick correct strength-formulation from [employer] options. If intended option is not shown, discontinue and re-order from Quick Search*, Not-Taking Amoxicillin 500 MG Capsule 1 cap(s) orally 3 times a day , Not-Taking Ntakrinmy-Bmygqlky-JT 30-2-10 MG/5ML Syrup 5-10 ml orally 4 times per day, prn , Not-Taking Medrol 4 MG Tablet Therapy Pack as directed orally , Not-Taking Albuterol Sulfate HFA 108 (90 Base) MCG/ACT Aerosol Solution 1-2 puff(s) inhaled every 6 hours, prn , Not-Taking Medrol 4 MG Tablet Therapy Pack as directed orally daily , Not-Taking Medrol 4 MG Tablet Therapy Pack as directed orally daily , Medication List reviewed and reconciled with the patient Objective: * Vitals: Assessment: * Assessment: 1. E ncounter for immunization - Z23 (Primary) Plan: * Treatment: * Immunizations: Fluzone Quad (6months&older) : 0.5 mL (Route: Intramuscular) given by Mona Lugo on Right Deltoid (Encounter for immunization) * Images: Billing Information: * Visit Code: * Procedure Codes: * Electronic signature of Vania Alexander MD on 12/14/2024 at 08:45 AM EDT Sign off status: Pending * Provider: Edie Alexander M.D. Date: 1 05/23/2023 Generated for Isaiah hook/Du/Gilmar on: 0 12/14/2024 08:45 AM EDT
--- OUTSIDE RECORDS SUMMARY | 2024-06-03 05:45 | XMS_ITS ---
Author Organization [facility] Address [address] [place] [id number] Care Team Providers Care Rn Licensed Practical Name Role Phone Julio C Blackburn Primary Care Provider SantoshFern inman Unavailable [phone] Allergies No Known Allergies Results Component Value Reference Range Notes CBC Venipuncture (in house) Reviewed date:06/03/2024 12:28:30 PM Interpretation: Performing Lab: Notes/Report: wbc 9.5 3.5 - 10 lymph 36.8 15 - 50 mid 6.8 2 - 15 gran 56.4 35 - 80 rbc 5.19 3.5 - 5.5 hgb 16.8 11.5 - 16.5 hct 50.1 35 - 55 mcv 96.5 75 - 100 mch 32.3 25 - 35 mchc 33.5 31 - 38 platlet 205 100 - 400 Glycohemoglobin A1c (in hous e) Reviewed date:06/08/2024 11:31:21 AM Interpretation:6.4% Performing Lab: Notes/Report: 6.4% glycohemoglobin 6.4% 5 - 6.5 % P-Comprehensive Metabolic Pa eugenia (CMP) Reviewed date:06/08/2024 11:31:21 AM Interpretation:Normal Performing Lab: Notes/Report: Test performed by [facility] [address] [place] [address] , [address], [place] [address] Hamlet Louis MD, Developmental Therapist CLIA: [id number] Sodium 141 135-145 mmol/L Potassium 4.6 3.5-5.3 mmol/L Chloride 102 97-108 mmol/L CO2 28 22-32 mmol/L Glucose 95 65-99 mg/dL BUN 8 6-20 mg/dL Creatinine 0.60 0.50-1.00 mg/dL Calcium 9.5 8.6-10.4 mg/dL eGFR by Creatinine 106 >59 mL/min/1.73m2 Protein 7.2 6.0-8.3 g/dL Albumin 4.5 3.5-5.3 g/dL Alkaline Phosphatase 56 35-121 IU/L ALT (SGPT) 22 <5-47 IU/L AST (SGOT) 17 <5-40 IU/L Bilirubin, Total 0.5 <0.2-1.2 mg/dL A/G Ratio 1.7 1.1-2.5 P-Lipid Panel Reviewed date:06/08/2024 11:31:21 AM Interpretation:chol 236, trigs 182, hdl 37, chol/hdl 6.38, non-hdl 199, ldl 163, ldl/hdl 4.4 Performing Lab: Notes/Report: Test performed by [facility], [address] , [address], [place] [address] Hamlet Louis MD, Developmental Therapist CLIA: [id number] Cholesterol 236 <200 mg/dL Triglycerides 182 <150 mg/dL HDL Cholesterol 37 >39 mg/dL Cholesterol / HDL Ratio 6.38 0.00-4.44 Ratio Non-HDL Cholesterol 199 <130 mg/dL LDL Cholesterol (Calculation) 163 <130 mg/dL LDL Cholesterol Levels* Less than 100 mg/dL Optimal 100 to 129 mg/dL Near Optimal/ Above Optimal 130 to 159 mg/dL Borderline High 160 to 189 mg/dL High 190 mg/dL and above Very High * Categories as recommended by the 2004 ATPIII guidelines LDL/HDL Ratio 4.4 <3.3 Ratio LDL Cholesterol Patient History Test Date: 06/03/2024 LDL Results: 163 Units: mg/dL % Change: - P-Microalbumin/Creatinine, R andom Urine Sample Reviewed date:06/08/2024 11:31:21 AM Interpretation:Normal Performing Lab: Notes/Report: Test performed by [facility] [address] , [address], [place] [address] Hamlet Louis MD, Developmental Therapist CLIA: [id number] Albumin/Creatinine Ratio, Urine 19 0-30 ug/m g Microalbumin, Urine, Random 2.2 Creatinine, Urine 113.1 CXR Reviewed date:06/08/2024 11:31:21 AM Interpretation:nothing acute, no change Performing Lab: Notes/Report: nothing acute, no change Mammogram Reviewed date:06/15/2024 03:37:14 PM Interpretation:negative Performing Lab: Notes/Report: negative REASON FOR VISIT check up and blood work Medications Medication SIG (Take, Route, Frequency, Duration) Notes Start Date End Date Status Meloxicam 15 MG 1 tab(s) orally once a day; Duration: 30 day(s) 09/15/2022 Active Albuterol Sulfate HFA 108 (90 Base) MCG/ACT 1-2 puffs as needed Inhalation every 4 hrs, prn 06/03/2024 Active Uqzcrywig-Jvktfnbt-NB 30-2-10 MG/5ML 5-10 ml Orally 4 times a day, prn 06/03/2024 Active Vital Signs Blood pressure systolic 124 mm Hg 06/03/19 25 Blood pressure diastolic 86 mm Hg 025 Heart Rate 93 /min 06/03/2024 Height 63.50 in 06/03/2024 Weight 266.2 lbs 06/03/2024 BMI 46.41 kg/m2 06/03/2024 Encounters Encounter Location Date Provider Diagnosis [facility] [address] [place] [id number] 06/03/2024 Fern Yates Type 2 diabetes henry itus without complication, without long-term current use of insulin E11.9 ; Hyperlipidemia E78.5 ; Osteoarthritis of spine with radiculopathy, cervical region M47.22 ; Tobacco use Z72.0 ; Bronchitis J40 and Screening mammogram, encounter for Z12.31 Assessments Encounter Date Diagnosis (ICD Code) Assessment Notes Treatment Notes Treatment Clinical Notes Section Notes 06/03/2024 Type 2 diabetes mellitus without complication, without long-term current use of insulin (ICD-10 - E11.9) 06/03/2024 Hyperlipidemia (ICD-10 - E78.5) 06/03/2024 Osteoarthritis of spine with radiculopathy, cervical region (ICD-10 - M47.22) 06/03/2024 Tobacco use (ICD-10 - Z72.0) 06/03/2024 Bronchitis (ICD-10 - J40) 06/03/2024 Screening mammogram, encounter for (ICD-10 - Z12.31) Plan Of Treatment Medication Medication Name Sig Start Date Stop Date Notes Albuterol Sulfate HFA 108 (9 0 Base) MCG/ACT 1-2 puffs as needed Inhalation every 4 hrs, prn 06/03/2024 Zbavfwcir-Lxydrdou-BI 30-2-1 0 MG/5ML 5-10 ml Orally 4 times a day, prn 06/03/2024 Next Appt Details Follow Up: via phone to repo rt test results, Reason: Progress Notes * Gypsy ORDONEZDOB:1970 (54 yo F)Acc No.[id number]:06/03/2024 Progress Notes Patient: Gypsy GÓMEZ Provider: NATALY Caro :1970 A ge:53 Y S ex:Female Date:06/03/2024 Address:[facility] [id number] Pcp:Julio C Blackburn Subjective: * Chief Complaints: * 1 . Check up and blood work. * HPI: H PI: 53 year old female presents with c/o Patient is here today for?Pt is here today for a check up and blood work. Pt sts she has been sick since [place] and has been wheezing.. * ROS: D ERMATOLOGY: no R rick. n o H quang. G ASTROENTEROLOGY: no N ausea. n o V omiting. n o D iarrhea.? U ROLOGY: no D ifficulty urinating. n o B lood in urine. * Medical History: P fismooth Covid vaccine, Jul 20August 17, 2020, 08/2022 x-ray left shoulder negative. * Family History: F ather: 68 yrs. M other: 64 yrs. 2 sister(s) . 2 son(s) , 1 daughter(s) - healthy. . Father of heart attack, mother of COPD. * Social History: C URRENT TOBACCO USE S moking Status: Patient does smoke, packs per day: 0.5, Smoking preference: cigarettes. C affeine: frequency:. Marital Status: . Past smoking status: yes, Smoking status: Patient does smoke, Packs per day: 1, Smoking preference: cigarettes. * Medications: T aking Meloxicam 15 MG Tablet 1 tab(s) orally once a day , Medication List reviewed and reconciled with the patient * Allergies: N .K.D.A. Objective: * Vitals: W t:266.2, Temp:98.4, BP:124/86, HR:93, O2 Sat:95%, Nurse:[facility], Ht: 63.50, BMI:46.41. * Examination: G eneral Examination: General Appearance: N AD. H EENT: u nremarkable.?Oral cavity: n o lesions, mucosa moist and WNL, no erythema. N linnea: s upple, no lymphadenopathy. C hest: n ormal shape and expansion. H eart: R SR. L ungs: c lear to auscultation. A bdomen: bowel sounds present, soft and nontender, no organomegaly or masses, no guarding or rigidity. N eurologic Exam: I ntact, gait normal. S kin: n ormal, no rash. P eripheral pulses: n ormal (2+) bilaterally. E xtremities: n o leg edema. Assessment: * Assessment: 1. T ype 2 diabetes mellitus without complication, without long-term current use of insulin - E11.9 (Primary) 2 . H yperlipidemia - E78.5 3 . O steoarthritis of spine with radiculopathy, cervical region - M47.22 4 . T obacco use - Z72.0 5 . B ronchitis - J40 6 . S creening mammogram, encounter for - Z12.31 Plan: * Treatment: Value Reference Range A /G Ratio 1.7 1.1-2.5 - * A lbumin 4.5 3.5-5.3 - g/dL * A lkaline Phosphatase 56 35-121 - IU/L * A LT (SGPT) 22 <5-47 - IU/L * A ST (SGOT) 17 <5-40 - IU/L * B ilirubin, Total 0.5 <0.2-1.2 - mg/dL * B UN 8 6-20 - mg/dL * C alcium 9.5 8.6-10.4 - mg/dL * C hloride 102 97-108 - mmol/L * C O2 28 22-32 - mmol/L * C reatinine 0.60 0.50-1.00 - mg/dL * G lucose 95 65-99 - mg/dL * P otassium 4.6 3.5-5.3 - mmol/L * S odium 141 135-145 - mmol/L * P rotein 7.2 6.0-8.3 - g/dL * e GFR by Creatinine 106 >59 - mL/min/1.73m2 * Fern Yates 06/08/2024 11 :31:12 AM > see TE ?LAB: P-Microalbumin/Creatinine, Random Urine Sample (Collection Date & Time - 06/03/2024 09:13 AM)?Normal* Value Reference Range A lbumin/Creatinine Ratio, Urine 19 0-30 - ug /mg * C reatinine, Urine 113.1 - mg/dL * M icroalbumin, Urine, Random 2.2 - mg/dL * Fern Yates 06/08/2024 11 :31:12 AM > see TE ?LAB: Glycohemoglobin A1c (in house) (Collection Date & Time - 06/03/2024)? 6.4%* Value Reference Range g lycohemoglobin 6.4% 5 - 6.5 % * Brittnee Mata 06/03/2024 10:34 :08 AM > Fern Yates 06/08/2024 11:31:12 AM > see TE 2.?Hyperlipidemia?LAB: P-Lipid Panel (Collection Date & Time - 06/03/2024 09:13 AM)?chol 236, trigs 182, hdl 37, chol/hdl 6.38, non-hdl 199, ldl 163, ldl/hdl 4.4* Value Reference Range C holesterol / HDL Ratio 6.38 H 0.00-4.44 - Ratio * C holesterol 236 H <200 - mg/dL * H DL Cholesterol 37 L >39 - mg/dL * L DL Cholesterol (Calculation) 163 H <130 - mg/d L * L DL/HDL Ratio 4.4 H <3.3 - Ratio * N on-HDL Cholesterol 199 H <130 - mg/dL * T riglycerides 182 H <150 - mg/dL * Fern Yates 06/08/2024 11 :31:12 AM > see TE 3.?Bronchitis? Start Cxorvwhar-Ejyqzudo-NI Syrup, 30-2-10 MG/5ML, 5-10 ml, Orally, 4 times a day, prn, 240 mL, Refills 1;?Start Albuterol Sulfate HFA Aerosol Solution, 108 (90 Base) MCG/ACT, 1-2 puffs as needed, Inhalation, every 4 hrs, prn, 1, Refills 1.?LAB: CBC Venipuncture (in house) (Collection Date & Time - 06/03/2024)* Value Reference Range w bc 9.5 3.5 - 10 * l ymph 36.8 15 - 50 * m id 6.8 2 - 15 * g ran 56.4 35 - 80 * r bc 5.19 3.5 - 5.5 * h gb 16.8 11.5 - 16.5 * h ct 50.1 35 - 55 * m cv 96.5 75 - 100 * m ch 32.3 25 - 35 * m chc 33.5 31 - 38 * p latlet 205 100 - 400 * Brittnee Mata 06/03/2024 10:29 :20 AM > , Provider reviewed results while patient in office.TrudyFern Bustillo 06/03/2024 12:28:24 PM > ?Imaging: CXR (Performed Date - 06/03/2024)?nothing acute, no change* TrudyFern Bustillo 06/08/2024 11 :31:12 AM > see TE 4.?Screening mammogram, encounter for?Imaging: Mammogram (Performed Date - 06/09/2024)?negative* TrudyFern Bustillo 06/03/2024 11 :18:36 AM >Berenice Velarde 06/03/2024 11:34:58 AM > faxed to [facility] SchedulingCrFern marcum Keny 06/15/2024 9:16:05 AM > Please let patient know this was normalSelene Mcelroy 06/15/2024 3:37:05 PM > Pt informed * Procedure Codes: 9 47[address] [place], [address] CBC WITH AUTO DIFF, 75011 GLYCATED HEMOGLOBIN TEST, Modifiers: QW * Follow Up: v ia phone to report test results * Images: Billing Information: * Visit Code: 23317 Office Visit, Est Pt., Level 4. * Procedure Codes: [address] [place]. [address] CBC WITH AUTO DIFF. 47111 GLYCATED HEMOGLOBIN TEST. Modifiers: QW * Electronic signature of NATALY Bolanos on 12/14/2024 at 08:45 AM EDT Sign off status: Pending * Provider: NATALY Caro Date: 0 06/03/2024 Generated for Teresoi ng/Faadriag/eTransmitting on: 0 12/14/2024 08:45 AM EDT History and Physical Notes * HPI (History of Present Illness) Category Sub-Category Detail Notes Category Not es HPI Patient is here today for Pt is here today for a check up and blood work. Pt sts she has been sick since [place] and has been wheezing. Examination Category Sub-Category Detail Notes Category Not es General Examination HEENT: unremarkable Heart: RSR Lungs: clear to auscultatio n Abdomen: bowel sounds present , soft and nontender, no organomegaly or masses, no guarding or rigidity Extremities: no leg edema General Appearance: NAD Skin: normal, no rash Neurologic Exam: Intact, gait normal Neck: supple, no lymphaden opathy Oral cavity: no lesions, mucosa m oist and WNL, no erythema Peripheral pulses: normal (2+) bilatera lly Chest: normal shape and exp ansion
--- OUTSIDE RECORDS SUMMARY | 2024-12-14 08:45 | XMS_ITS | Patient Health Record ---
Author Organization [facility] Address [address] [place] [id number] Care Team Providers Care Pipe Stem Repairer Name Role Phone Julio C Blackburn Primary Care Provider Catherine Alessandro Unavailable [phone] Fern Yates Unavailable [phone] Allergies No Known Allergies Results Component Value [...] Interpretation:Normal Performing Lab: Notes/Report: Test performed by [facility] [address] [place] [address] , [address], [place] [address] Hamlet Louis MD, Charge Lpn CLIA: [id number] Sodium 141 135-145 mmol/L Potassium 4.6 3.5-5.3 [...] 4.4 Performing Lab: Notes/Report: Test performed by [facility], [address] , [address] , [place] [address] Hamlet Louis MD, Charge Lpn CLIA: [id number] Cholesterol 236 <200 mg/dL Triglycerides 182 <150 [...] Interpretation:Normal Performing Lab: Notes/Report: Test performed by [facility], [address] , [place] [address] Hamlet Louis MD, Charge Lpn CLIA: [id number] Albumin/Creatinine Ratio, Urine 19 0-30 ug/m g Microalbumin, Urine, Random 2.2 Creatinine, Urine 113.1 CXR Reviewed date:06/08/2024 11:31:21 AM Interpretation:nothing acute, no change Performing Lab: Notes/Report: nothing acute, no change Mammogram Reviewed date:06/15/2024 03:37:14 PM Interpretation:negative Performing Lab: Notes/Report: negative Reason For Referral No Information Medications Medication SIG (Take, Route, Frequency, Duration) Notes Start Date End Date Status Meloxicam 15 MG 1 tab(s) orally once a day; Duration: 30 days Active Albuterol Sulfate HFA 108 (90 Base) MCG/ACT 1-2 puffs as needed Inhalation every 4 hrs, prn 06/03/2024 Active Ohnymvocx-Ibksmubw-YI 30-2-10 MG/5ML 5-10 ml Orally 4 times a day, prn 06/03/2024 Active Rosuvastatin Calcium 5 mg TAKE ONE TABLE T BY MOUTH EVERY DAY; Duration: 30 Active Immunizations Vaccine Route Administration Date Status Comme nts xFluzone Intradermal (18-64yrs)-trivalent ID Intradermal 02/13/2012 Administered xFluzone Intradermal (18-64yrs)-trivalent ID Intradermal 02/11/2013 Administered xFluzone (6mos and older)-trivalent IM 04/02/2010 Administered Tetanus Tdap-Adacel (over 7yrs) IM Intramuscular 01/28/2016 Administered Shingrix Unknown 06/04/2020 Administered Shingrix Unknown 06/04/2020 Administered Fluzone Quad (6months&older) IM Intramuscular 03/26/2017 Administered Fluzone Quad (6months&older) IM Intramuscular 02/20/2018 Administered Fluzone Quad (6months&older) IM Intramuscular 02/19/2019 Administered Fluzone Quad (6months&older) IM Intramuscular 03/15/2022 Administered Fluzone Quad (6months&older) IM Intramuscular 03/19/2023 Administered Fluzone Quad (6months&older) IM Intramuscular 03/23/2024 Administered Fluzone Intradermal Quad private(18-64yrs) ID Intradermal 03/22/2015 Administered Fluzone Intradermal Quad private(18-64yrs) IM Intramuscular 01/28/2016 Administered Flublok IM Intramuscular 03/07/2021 Administered xFlu shot-36 months and older IM Intramuscular 04/06/2008 Administered xFlu shot-36 months and older IM Intramuscular 01/25/2009 Administered PNEUMOVAX 23 VACCINE Unknown 06/04/2020 Administered Hepatitis A (adult) IM Intramuscular 05/21/2018 Administer ed Hepatitis A (adult) IM Intramuscular 11/24/2018 Administer ed COVID 19 Pfizer Unknown 07/20/2020 Administered COVID 19 Pfizer Unknown 08/17/2020 Administered COVID 19 Pfizer Unknown 04/05/2021 Administered Problems Problem Type SNOMED Code ICD Code Onset Dates Problem Status W/U Status Risk Notes Problem Hyperlipidemia (81448392) Hyperlipidemia (E78.5) Active confirmed Problem Menorrhagia (767506268) Menorrhagia (N92.0) Active confirmed Problem Body mass index 40+ - severely obese (273274188) BMI 45.0-49.9, adult (Z68.42) Active confirmed Problem Bursitis of shoulder (429240967) Bursitis of unspecified shoulder (M75.50) Active confirmed Problem Shoulder lesion, unspecified, unspecified shoulder (M75.90) Active confirmed Problem New daily persistent headache (296233645759710) New daily persistent headache (G44.52) Active confirmed Problem Cervical disc disorder (346535822) DDD (degenerative disc disease), cervical (M50.30) Active confirmed Problem Shoulder joint pain (242626374) Acute pain of left shoulder (M25.512) Active confirmed Problem Cervical spondylosis without myelopathy (612815819) Osteoarthritis of spine with radiculopathy, cervical region (M47.22) Active confirmed Problem Allergic rhinitis caused by pollen (78433104) Seasonal allergic rhinitis due to pollen (J30.1) Active confirmed Problem Type II diabetes mellitus without complication (427208168) Type 2 diabetes mellitus without complication, without long-term current use of insulin (E11.9) Active confirmed Problem Sciatic nerve lesion (716295249) Piriformis syndrome, right (G57.01) Active confirmed Problem Fibrocystic breast changes (15631621) Fibrocystic breast disease (FCBD), unspecified laterality (N60.19) Active confirmed Problem Acquired deformity of neck (38205270) Neural foraminal stenosis of cervical spine (M99.81) Active confirmed Problem Plain X-ray result abnormal (682230346) Abnormal x-ray (R93.89) Active confirmed Problem Primary hypertension (56241655) Primary hypertension (I10) Active confirmed Problem History of headache (094981031) History of headache (Z87.898) Active confirmed Problem Degeneration of cervical intervertebral disc (88352302) Degeneration of intervertebral disc of cervical spine without disc herniation (M50.30) Active confirmed Vital Signs Heart Rate 93 /min 06/03/2024 Blood pressure diastolic 86 mm Hg 06/03/2024 Height 63.50 in 06/03/2024 Blood pressure systolic 124 mm Hg 06/03/2024 Weight 266.2 lbs 06/03/2024 BMI 46.41 kg/m2 06/03/2024 Encounters Encounter Location Date Provider Diagnosis [facility] [address] [place], [place] [id number] 03/23/2024 Alessandro Alexander Encounter for immunization Z23 [facility] [address] [place], [place] [id number] 06/03/2024 Fern Yates Type 2 diabetes henry itus without complication, without long-term current use of insulin E11.9 ; Hyperlipidemia E78.5 ; Osteoarthritis of spine with radiculopathy, cervical region M47.22 ; Tobacco use Z72.0 ; Bronchitis J40 and Screening mammogram, encounter for Z12.31 [facility] [address] [place] [id number] 04/18/2024 Julio C Blackburn [facility] [address] [place] [id number] 06/08/2024 Fern Yates Assessments Encounter Date Diagnosis (ICD Code) Assessment Notes Treatment Notes Treatment Clinical Notes Section Notes 06/03/2024 Type 2 diabetes mellitus without complication, without long-term current use of insulin (ICD-10 - E11.9) 03/23/2024 Encounter for immunization (ICD-10 - Z23) 06/03/2024 Hyperlipidemia (ICD-10 - E78.5) 06/03/2024 Osteoarthritis of spine with radiculopathy, cervical region (ICD-10 - M47.22) 06/03/2024 Tobacco use (ICD-10 - Z72.0) 06/03/2024 Bronchitis (ICD-10 - J40) 06/03/2024 Screening mammogram, encounter for (ICD-10 - Z12.31) Plan Of Treatment No Information Insurance Providers Payer Name Payer Address Payer Phone Subscriber Number Group Number Insured Name Patient Relationship to Insured Coverage Start Date Coverage End Date [employer] [address] [place] [address] [id number] Gypsy Gutierrez Self - patient is the insured Medications Administered Medication Instructions Date of Administration Dosage Notes Dexamethasone 05/24/2014 1 mL Dexamethasone 01/16/2016 1 mL Medical (General) History Medical History History ICD Code Pfizer Covid vaccine, Jul 20August 1708/2022 x-ray left shoulder negative Surgical History Surgery Date(Month/Year) Hospitalization History Reason Date(Month/Year)
[2024-12-14 08:50] VITALS: BP 173/95; PULSE 100; RESP 15; TEMP 36.6; O2SAT 94; BMI 46.0
[2024-12-14 08:56] LABS: Microscopic, Urine URINE MICROSCOPIC (MICROSCOPIC)
[2024-12-14 09:00] VITALS: BP 173/95; PULSE 100; RESP 15; TEMP 36.6; O2SAT 94
[2024-12-14 09:03] VITALS: O2SAT 94
[2024-12-14 09:19] LABS: Bilirubin,Urine Negative (Negative); Color,Urine YELLOW (Yellow); Glucose,Urine (UA) Negative (Negative); Ketones,Urine Negative (Negative); Leukocyte Esterase,Urine 1+ (Negative); PH,Urine 6.5 (5.0-8.5); Protein,Urine Negative (Negative); Specific Gravity, Urine 1.010 (1.005-1.030); Urobilinogen,Urine 0.2 EU/dl (0.2)
[2024-12-14 09:22] LABS: Bacteria,Urine 1+ /lpf; RBC,Urine Occasional #/hpf (0-3); Squamous Epithelial Cell,Urine 20-50 #/hpf (0-5)
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
[2024-12-14] MEDS: ACETAMINOPHEN 500MG TAB 1000 MG PO (09:34)
[2024-12-14] MEDS: IBUPROFEN 400 MG TABLET 800 MG PO (09:34)
--- NOTE | 2024-12-14 09:42 | ECG_ITS ---
APPROVED REPORT Exam: Resting ECG HR:91 bpm ECG Measurements Heart Rate 91 AXES NV 145 P 78 QRSd 101 QRS 45 QT 371 T 51 QTc 420 Conclusion SINUS RHYTHM LOW QRS VOLTAGE IN PRECORDIAL LEADS [QRS DEFLECTION < 1.0 mV IN CHEST LEADS] No STEMI Electronically signed by : NABIL MARY, 12/14/2024 15:26:09
[2024-12-14 09:53] VITALS: BP 143/93; PULSE 96; RESP 16; O2SAT 93
[2024-12-14 11:21] VITALS: BP 140/78; PULSE 80; RESP 16; TEMP 36.7; O2SAT 98
== END 2024-12-14 11:32 | disposition home or self-care (01) ==
PROVIDERS: Emergency Provider Emergency Medicine; PCP Family Medicine
DX: M25.511 Pain in right shoulder (principal); V89.2XXA Person injured in unspecified motor-vehicle accident, traffic, initial encounter
CPT/HCPCS: 71046; 81001; 87086; 93005; 99284